=== PATIENT | female | born 1955 | race Caucasian/White ===

== ENCOUNTER 2017-03-10 10:38 | Inpatient (IN) | payer BC ==
[~2017-03-10] VITALS: Ht 166.4 cm; Wt 110.2 kg
[~2017-03-10 10:38] MED LIST: ACET500T68 PO; CYAN500T17 PO; FERR-26 PO; FLUT9.9S NS; HYDR25TA9 PO; HYDR453.3 TP; LISI-334 PO; LORA0.5T PO; MAG1TAB.3 PO; MAGN311T PO; MULT-312 PO; ONDA4TAB7 PO; OXYC10TA57 PO; OXYC5TAB95 PO; PROAIR HFA8.5 GM IH; RANI150T2 PO; SENN1TAB21 PO; SERT50TA PO
--- NOTE | 2017-03-10 11:06 | EKG ---
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
[2017-03-10] MEDS ORDERED: ASPIRIN ENTERIC COATED 325 MG TABLET.DR. PO ONE (11:15)
[2017-03-10] MEDS ORDERED: IPRATRPIUM/ALBUTEROL 0.5/2.5MG 3 ML NEBU. NEB ONE (11:15)
--- NOTE | 2017-03-10 11:24 | PHYS DOC ---
Past Medical History Past Medical History: Anxiety, Asthma, GERD, Hypertension, Other Additional Past Medical Histor: seasonal allergies, C-Diff Past Surgical History: , Knee Replacement Additional Past Surgical Histo: bilateral knee replacment on 2014 Alcohol Use: None Drug Use: None Adult General Chief Complaint Chief Complaint: chest pain, sob HPI HPI Patient is a 61 year old female who presents with rest pain or shortness of breath, dizziness. Patient states over the last few days she said increased shortness of breath, exertional dyspnea Cathy denies cough. She has a history of asthma in the past but hasn't used an inhaler in years. She did have disease and an inhaler for shortness of breath, unsure if this improved her symptoms. She has dizziness that feels like she could pass out, when she has this she has what feels like a pressure-like chest pain that is nonradiating. She also has associated shortness of breath. She denies any history of PE or DVT, she has had recent travel by plane to [place] was on a cruise. No other risk factors for DVT. Denies history of DVT or PE, no cardiac history. PCP is Susan Quintana Review of Systems Review of Systems Constitutional: Denies fever or chills [] Eyes: Denies change in visual acuity, redness, or eye pain [] HENT: Denies nasal congestion or sore throat [] Respiratory: Per history of present illness Cardiovascular: No additional information not addressed in HPI [] GI: Denies abdominal pain, nausea, vomiting, bloody stools or diarrhea [] : Denies dysuria or hematuria [] Musculoskeletal: Denies back pain or joint pain [] Integument: Denies rash or skin lesions [] Neurologic: Denies headache, focal weakness or sensory changes [] Current Medications Current Medications Current Medications Medications (Trade) Dose Ordered Sig/Anastasia Start Time Stop Time Status Last Admin Dose Admin Albuterol/ Ipratropium (Duoneb) 3 ml 1X ONCE 03/10/17 11:15 03/10/17 11:20 DC 03/10/17 11:29 3 ML Aspirin (Ecotrin) 325 mg 1X ONCE 03/10/17 11:15 03/10/17 11:20 DC 03/10/17 11:15 325 MG Allergies Allergies Allergies Coded Allergies Type Severity Reaction Last Updated Verified Penicillins Allergy Intermediate Rash 09/30/14 No Physical Exam Physical Exam Constitutional: Well developed, well nourished, no acute distress, non-toxic appearance, tearful HENT: Normocephalic, atraumatic, bilateral external ears normal, oropharynx moist, no oral exudates, nose normal. [] Eyes: PERRLA, EOMI, conjunctiva normal, no discharge. [] Neck: Normal range of motion, no tenderness, supple, no stridor. [] Cardiovascular:Heart rate regular with regular rhythm, no murmur [] Lungs & Thorax: Bilateral breath sounds, moderate air movement, no crackles/ rhonchi/wheeze Abdomen: Bowel sounds normal, soft, no tenderness, no masses, no pulsatile masses. [] Skin: Warm, dry, no erythema, no rash. [] Back: No tenderness, no CVA tenderness. [] Extremities: No tenderness, no cyanosis, no clubbing, ROM intact, no edema.Negative homen's bilaterally Neurologic: Alert and oriented X 3, normal motor function, normal sensory function, no focal deficits noted. [] Psychologic: Affect normal, judgement normal, mood normal. [] Current Patient Data Vital Signs Vital Signs Date Time Temp Pulse Resp B/P (MAP) Pulse Ox O2 Delivery O2 Flow Rate FiO2 03/10/17 12:09 67 18 130/70 (90) 97 Room Air 03/10/17 10:49 97.6 97.6 Lab Values Laboratory Tests Test 03/10/17 11:20 White Blood Count 6.8 x10^3/uL (4.0-11.0) Red Blood Count 4.80 x10^6/uL (3.50-5.40) Hemoglobin 13.8 g/dL (12.0-15.5) Hematocrit 41.5 % (36.0-47.0) Mean Corpuscular Volume 86 fL (79-100) Mean Corpuscular Hemoglobin 29 pg (25-35) Mean Corpuscular Hemoglobin Concent 33 g/dL (31-37) Red Cell Distribution Width 13.7 % (11.5-14.5) Platelet Count 225 x10^3/uL (140-400) Neutrophils (%) (Auto) 69 % (31-73) Lymphocytes (%) (Auto) 20 % (24-48) L Monocytes (%) (Auto) 7 % (0-9) Eosinophils (%) (Auto) 3 % (0-3) Basophils (%) (Auto) 1 % (0-3) Neutrophils # (Auto) 4.7 x10^3uL (1.8-7.7) Lymphocytes # (Auto) 1.3 x10^3/uL (1.0-4.8) Monocytes # (Auto) 0.5 x10^3/uL (0.0-1.1) Eosinophils # (Auto) 0.2 x10^3/uL (0.0-0.7) Basophils # (Auto) 0.1 x10^3/uL (0.0-0.2) D-Dimer (Jayla) 0.38 ug/mlFEU (0.00-0.50) Sodium Level 142 mmol/L (136-145) Potassium Level 3.8 mmol/L (3.5-5.1) Chloride Level 103 mmol/L (98-107) Carbon Dioxide Level 32 mmol/L (21-32) Anion Gap 7 (6-14) Blood Urea Nitrogen 21 mg/dL (7-20) H Creatinine 0.8 mg/dL (0.6-1.0) Estimated GFR (Cockcroft-Gault) 73.4 BUN/Creatinine Ratio 26 (6-20) H Glucose Level 106 mg/dL (70-99) H Calcium Level 9.9 mg/dL (8.5-10.1) Magnesium Level 1.9 mg/dL (1.8-2.4) Total Bilirubin 1.1 mg/dL (0.2-1.0) H Aspartate Amino Transferase (AST) 38 U/L (15-37) H Alanine Aminotransferase (ALT) 55 U/L (14-59) Alkaline Phosphatase 81 U/L (46-116) Troponin I Quantitative < 0.017 ng/mL (0.000-0.055) Total Protein 7.5 g/dL (6.4-8.2) Albumin 3.8 g/dL (3.4-5.0) Albumin/Globulin Ratio 1.0 (1.0-1.7) Triglycerides Level 483 mg/dL (0-150) H Cholesterol Level 216 mg/dL (0-200) H LDL Cholesterol, Calculated 82 mg/dL (0-100) VLDL Cholesterol, Calculated 97 mg/dL (0-40) H Non-HDL Cholesterol Calculated 179 mg/dL (0-129) H HDL Cholesterol 37 mg/dL (40-60) L Cholesterol/HDL Ratio 5.8 Laboratory Tests 03/10/17 11:20 Laboratory Tests 03/10/17 11:20 EKG EKG 1040: 68 bpm, sinus, normal axis, normal intervals, no ST elevation or depression, nonischemic T waves, interpreted by me[] Radiology/Procedures Radiology/Procedures CXR: Examination: Single frontal view the chest History: History of chest pain, shortness of breath Comparison: None available Findings: The cardiomediastinal grossly appears unremarkable. There is no acute infiltrate or visualized pneumothorax. Impression: No acute cardiopulmonary findings. [] Course & Med Decision Making Course & Med Decision Making Pertinent Labs and Imaging studies reviewed. (See chart for details) Pt given asa and breathing treatment. Pt's sob improved, chest pain had resolved upon arrival. Due to pt's dizziness with the chest pain, will admit for serial enzymes. Pt accepted by Dr. Salcedo, pt given po prednisone 50mg. Dragon Disclaimer Dragon Disclaimer This electronic medical record was generated, in whole or in part, using a voice recognition dictation system. Departure Departure Impression: Primary Impression: Chest pain Disposition: ADMITTED INPATIENT Admitting Physician: Isabella Salcedo Referrals: JENNIFER PAREDES MD (PCP) SANDRA HERMOSILLO MD Mar 10, 2017 11:24
[2017-03-10 11:31] LABS: BASO # 0.1 x10^3/uL (0.0-0.2); BASO % 1 % (0-3); EOS % 3 % (0-3); HEMATOCRIT 41.5 % (36.0-47.0); HEMOGLOBIN 13.8 g/dL (12.0-15.5); LYMPH # 1.3 x10^3/uL (1.0-4.8); LYMPH % 20 % (24-48); MEAN CORPUSCULAR HEMOGLOBIN 29 pg (25-35); MEAN CORPUSCULAR HGB CONC 33 g/dL (31-37); MEAN CORPUSCULAR VOLUME 86 fL (79-100); MONO % 7 % (0-9); NEUT % 69 % (31-73); PLATELET COUNT 225 x10^3/uL (140-400); RED CELL DISTRIBUTION WIDTH 13.7 % (11.5-14.5); WHITE BLOOD COUNT 6.8 x10^3/uL (4.0-11.0)
[2017-03-10 11:42] LABS: CALCIUM 9.9 mg/dL (8.5-10.1); CREATININE 0.8 mg/dL (0.6-1.0); GFR 73.4; POTASSIUM 3.8 mmol/L (3.5-5.1)
[2017-03-10 11:48] LABS: ALBUMIN 3.8 g/dL (3.4-5.0); MAGNESIUM 1.9 mg/dL (1.8-2.4); TOTAL BILIRUBIN 1.1 mg/dL (0.2-1.0); TOTAL PROTEIN 7.5 g/dL (6.4-8.2)
--- NOTE | 2017-03-10 11:54 | RAD ---
Examination: Single frontal view the chest History: History of chest pain, shortness of breath Comparison: None available Findings: The cardiomediastinal grossly appears unremarkable. There is no acute infiltrate or visualized pneumothorax. Impression: No acute cardiopulmonary findings.
[2017-03-10] MEDS ORDERED: predniSONE 10 MG TABLET PO ONE (12:30)
--- NOTE | 2017-03-10 13:53 | PDOC2 ---
SRAVAN GARCES LIBRARY SERVICES ASSISTANT 03/10/17 1353: CARDIAC CONSULT DATE OF CONSULT Date of Consult DATE: 03/10/17 TIME: 13:42 REASON FOR CONSULT Reason for Consult: CP SOA REFERRING PHYSICIAN Referring Physician: Manju SOURCE Source: Chart review, Patient HISTORY OF PRESENT ILLNESS HISTORY OF PRESENT ILLNESS This is a pleasant 61 yo female admitted for complains of chest pain and SOA. Reports that she started having intermittent chest pressure that is nonradidating preceded byt lightheadedness and eventual SOA. This episode last about 60 sec and has been happening intermittently since Monday. This is also associated with anxiety. Also positive for increased belching and indigestion and has been taking tums and just recently started on prilosec but not regularly. Denies any palpiations, nausea, vomiting. No visual or auditory impairment, no LAGUERRE. Denies any prior CAD, VTE, no prior falls or injury. Positive for HTN and HLP. Denies any frequent NSAID use, no bleeding or PUD. No exertional CP nor HUTCHISON. PAST MEDICAL HISTORY Cardiovascular: HTN, Hyperlipidemia Pulmonary: No pertinent hx CENTRAL NERVOUS SYSTEM: Other (No pertinent history) GI: GERD Heme/Onc: No pertinent hx Hepatobiliary: No pertinent hx Psych: Anxiety Musculoskeletal: Osteoarthritis Rheumatologic: No pertinent hx Infectious disease: No pertinent hx ENT: Allergic Rhinitis Renal/: No pertinent hx Endocrine: No pertinent hx Dermatology: No pertinent hx PAST SURGICAL HISTORY Past Surgical History: , Total knee replacement (bilateral), Tonsillectomy, Other (bilateral breast cyst removal) FAMILY HISTORY Family History: Coronary Artery Disease (father) SOCIAL HISTORY Smoke: No ALCOHOL: none Drugs: None Lives: with Family Domestic Violence: Neg CURRENT MEDICATIONS CURRENT MEDICATIONS Current Medications Medications (Trade) Dose Ordered Sig/Anastasia Route PRN Reason Start Time Stop Time Status Last Admin Dose Admin Aspirin (Ecotrin) 325 mg 1X ONCE PO 03/10/17 11:15 03/10/17 11:20 DC 03/10/17 11:15 Albuterol/ Ipratropium (Duoneb) 3 ml 1X ONCE NEB 03/10/17 11:15 03/10/17 11:20 DC 03/10/17 11:29 Prednisone (Prednisone) 50 mg 1X ONCE PO 03/10/17 12:30 03/10/17 12:31 DC 03/10/17 12:30 ALLERGIES ALLERGIES: Coded Allergies: Penicillins (Unverified Allergy, Intermediate, Rash, 09/30/14) ROS Review of System 14 point ROS evaluated with pertinent positives noted per HPI PHYSICAL EXAM General: Alert, Oriented X3, Cooperative, No acute distress HEENT: Atraumatic, Mucous membr. moist/pink Lungs: Clear to auscultation, Normal air movement Heart: Regular rate (SR), Normal S1, Normal S2 Abdomen: Soft, No tenderness, Other (obese) Extremities: No cyanosis, Other (trace LE edema) Skin: No breakdown, No significant lesion Neuro: Normal speech, Sensation intact Psych/Mental Status: Mental status NL, Mood NL MUSCULOSKELETAL: Osteoarthritic changes both hands VITALS VITALS Vital Signs Date Time Temp Pulse Resp B/P (MAP) Pulse Ox O2 Delivery O2 Flow Rate FiO2 03/10/17 12:39 73 19 129/76 (93) 98 Room Air 03/10/17 10:49 97.6 97.6 LABS Lab: Laboratory Tests Test 03/10/17 11:20 White Blood Count 6.8 x10^3/uL (4.0-11.0) Red Blood Count 4.80 x10^6/uL (3.50-5.40) Hemoglobin 13.8 g/dL (12.0-15.5) Hematocrit 41.5 % (36.0-47.0) Mean Corpuscular Volume 86 fL (79-100) Mean Corpuscular Hemoglobin 29 pg (25-35) Mean Corpuscular Hemoglobin Concent 33 g/dL (31-37) Red Cell Distribution Width 13.7 % (11.5-14.5) Platelet Count 225 x10^3/uL (140-400) Neutrophils (%) (Auto) 69 % (31-73) Lymphocytes (%) (Auto) 20 % (24-48) Monocytes (%) (Auto) 7 % (0-9) Eosinophils (%) (Auto) 3 % (0-3) Basophils (%) (Auto) 1 % (0-3) Neutrophils # (Auto) 4.7 x10^3uL (1.8-7.7) Lymphocytes # (Auto) 1.3 x10^3/uL (1.0-4.8) Monocytes # (Auto) 0.5 x10^3/uL (0.0-1.1) Eosinophils # (Auto) 0.2 x10^3/uL (0.0-0.7) Basophils # (Auto) 0.1 x10^3/uL (0.0-0.2) D-Dimer (Jayla) 0.38 ug/mlFEU (0.00-0.50) Sodium Level 142 mmol/L (136-145) Potassium Level 3.8 mmol/L (3.5-5.1) Chloride Level 103 mmol/L (98-107) Carbon Dioxide Level 32 mmol/L (21-32) Anion Gap 7 (6-14) Blood Urea Nitrogen 21 mg/dL (7-20) Creatinine 0.8 mg/dL (0.6-1.0) Estimated GFR (Cockcroft-Gault) 73.4 BUN/Creatinine Ratio 26 (6-20) Glucose Level 106 mg/dL (70-99) Calcium Level 9.9 mg/dL (8.5-10.1) Magnesium Level 1.9 mg/dL (1.8-2.4) Total Bilirubin 1.1 mg/dL (0.2-1.0) Aspartate Amino Transf (AST/SGOT) 38 U/L (15-37) Alanine Aminotransferase (ALT/SGPT) 55 U/L (14-59) Alkaline Phosphatase 81 U/L (46-116) Troponin I Quantitative < 0.017 ng/mL (0.000-0.055) Total Protein 7.5 g/dL (6.4-8.2) Albumin 3.8 g/dL (3.4-5.0) Albumin/Globulin Ratio 1.0 (1.0-1.7) ASSESSMENT/PLAN ASSESSMENT/PLAN 1. Atypical CP: likely GI. 2. Presyncope: likely vasovagal induced by anxiety 3. HTN: controlled 4. HLP: unknown med 5. Anxiety: takes ativan per home med 6. GERD 7. Morbid obesity Recommendations 1. TTE and will completely rule out ischemia with 2 day MPI rest today stress tomorrow. 2. Start PPI. 3. Lipid panel, trend troponin 4. Lifestyle modification, wt loss. Problems: STEPHANIE BECKHAM MD 03/10/17 1853: CARDIAC CONSULT ALLERGIES ALLERGIES: Coded Allergies: Penicillins (Unverified Allergy, Intermediate, Rash, 09/30/14) ASSESSMENT/PLAN ASSESSMENT/PLAN Patient seen and examined. Agree with above nurse practitioner note. 61-year- old woman with multiple comorbid conditions presenting with atypical chest pain. Plan for MPI prior to discharge. Thank you for this consultation. Problems: SRAVAN GARCES APRN Mar 10, 2017 13:53 STEPHANIE BECKHAM MD Mar 10, 2017 18:53
[2017-03-10 14:05] LABS: CHOLESTEROL/HDL RATIO 5.8
[2017-03-10 14:15] VITALS: BP 131/78
[2017-03-10] MEDS ORDERED: ATOR10TA60 PO (14:25)
[2017-03-10 15:00] VITALS: BP 131/78
--- NOTE | 2017-03-10 16:03 | CARD ---
APPROVED REPORT EXAM: Two-dimensional and M-mode echocardiogram with Doppler and color Doppler. Other Information Quality : Good INDICATION Chest Pain 2D DIMENSIONS Left Atrium(2D)4.0 (1.6-4.0cm)IVSd1.3 (0.7-1.1cm) Aortic Root(2D)3.2 (2.0-3.7cm)LVDd5.4 (3.9-5.9cm) LVOT Diameter2.0 (1.8-2.4cm)PWd1.2 (0.7-1.1cm) LVDs3.7 (2.5-4.0cm)FS (%) 32.1 % SV85.5 mlLVEF(%)59.7 (>50%) Aortic Valve AoV Peak Nick.226.7cm/sAoV VTI42.2cm AO Peak GR.20.6mmHgLVOT Peak Nick.132.7cm/s AO Mean GR.11mmHg Mitral Valve MV E Thbosmbn432.9cm/sMV DECEL [id number] MV A Rskobmst636.8cm/sE/A Ratio0.7 Tricuspid Valve TR P. Jmswvahe518fi/sRAP [id number] TR Peak Gr.20mmHg LEFT VENTRICLE The left ventricle is normal size. There is mild concentric left ventricular hypertrophy. Left ventri bhupinder systolic function is normal. The Ejection Fraction is 55-60%. There is normal LV segmental wall m otion. The left ventricular diastolic function and filling is normal for age. RIGHT VENTRICLE The right ventricle is normal size. The right ventricular systolic function is normal. ATRIA The left atrium is mildly dilated. The right atrium size is normal. The interatrial septum is intact with no evidence for an atrial septal defect or patent foramen ovale as noted on 2-D or Doppler imagi ng. AORTIC VALVE The aortic valve is calcified but opens well. Doppler and Color Flow revealed no significant aortic r egurgitation. There is no significant aortic valvular stenosis. MITRAL VALVE The mitral valve is mildly calcified but opens well. There is no evidence of mitral valve prolapse. T here is no mitral valve stenosis. Doppler and Color Flow revealed no mitral valve regurgitation noted . TRICUSPID VALVE The tricuspid valve is normal in structure and function. Doppler and Color Flow revealed mild tricusp id regurgitation. There is no pulmonary hypertension. The PA pressure was estimated at 23 mmHg. There is no tricuspid valve prolapse or vegetation. There is no tricuspid valve stenosis. PULMONIC VALVE The pulmonary valve is normal in structure and function. Doppler and Color Flow revealed no pulmonic valvular regurgitation. There is no pulmonic valvular stenosis. GREAT VESSELS The aortic root is normal in size. The ascending aorta is normal in size. The IVC is normal in size a nd collapses >50% with inspiration. PERICARDIAL EFFUSION There is no pleural effusion. There is no evidence of significant pericardial effusion. Critical Notification Critical Value: No <Conclusion> Left ventricle systolic function is normal. The Ejection Fraction is 55-60%. There is normal LV segmental wall motion. Doppler and Color Flow revealed mild tricuspid regurgitation. The PA pressure was estimated at 23 mmHg. There is no evidence of significant pericardial effusion.
[2017-03-10] MEDS: IPRATRPIUM/ALBUTEROL 0.5/2.5MG 3 ML NEBU. NEB SCH ×2 (16:25→20:56)
--- NOTE | 2017-03-10 16:40 | PDOC1 ---
History and Physical Date of Admission Date of Admission DATE: 03/10/17 TIME: 16:33 Identification/Chief Complaint Chief Complaint chest pain and dyspnea Problems: Source Source: Chart review, Patient History of Present Illness History of Present Illness new LE edema the past few days, and new orthopnea. She had new dyspnea on exertion on monday, but then had felt well Today, she had marked dyspnea on exertion when walking into work from her car, and took 15 min for her to sit and catch her breath, no chest pain at start, but then pressure type freddie in mid chest as she was dyspneic she has no pain currently, but some ankle swelling, and has not been sleeping well as she gets short of breath when she lays flat Past Medical History Cardiovascular: HTN, Hyperlipidemia Pulmonary: No pertinent hx CENTRAL NERVOUS SYSTEM: Other (No pertinent history) GI: GERD Heme/Onc: No pertinent hx Hepatobiliary: No pertinent hx Psych: Anxiety Musculoskeletal: Osteoarthritis Rheumatologic: No pertinent hx Infectious disease: No pertinent hx ENT: Allergic Rhinitis Renal/: No pertinent hx Endocrine: No pertinent hx Dermatology: No pertinent hx Past Surgical History Past Surgical History: , Total knee replacement (bilateral), Tonsillectomy, Other (bilateral breast cyst removal) Family History Family History: Coronary Artery Disease (father) Family History: Parent (age 65 had CAD) Social History Smoke: No ALCOHOL: none Drugs: None Current Problem List Problem List Problems Medical Problems: (1) Chest pain Status: Acute Problems: Current Medications Current Medications Current Medications Aspirin (Ecotrin) 325 mg 1X ONCE PO Last administered on 03/10/17 11:15; Start 03/10/17 at 11:15; Stop 03/10/17 at 11:20; Status DC Albuterol/ Ipratropium (Duoneb) 3 ml 1X ONCE NEB Last administered on 11:29; Start 03/10/17 at 11:15; Stop 03/10/17 at 11:20; Status DC Prednisone (Prednisone) 50 mg 1X ONCE PO Last administered on 03/10/17 12:30 ; Start 03/10/17 at 12:30; Stop 03/10/17 at 12:31; Status DC Albuterol/ Ipratropium (Duoneb) 3 ml RTQID NEB Last administered on 03/10/17 16:25; Start 03/10/17 at 16:00; Stop 03/11/17 at 15:59 Fenofibrate (Lofibra) 54 mg DAILY PO ; Start 03/11/17 at 09:00 Active Scripts Active Reported Atorvastatin Calcium 10 Mg Tablet 10 Mg PO HS Lorazepam 0.5 Mg Tablet 0.5 Mg PO BID Zoloft (Sertraline Hcl) 50 Mg Tablet 1 Tab PO DAILY Lisinopril 20 Mg Tablet 1 Tab PO DAILY Hydrochlorothiazide Tablet (Hydrochlorothiazide) 25 Mg Tablet 0.5 Tab PO DAILY Flonase Allergy Relief (Fluticasone Propionate) 9.9 Ml [place].susp 9.9 Ml NS Ferrous Sulfate 325 Mg Tablet 1 Tab PO DAILY Senna Plus Tablet (Sennosides/Docusate Sodium) 1 Each Tablet 1 Each PO PRN PRN B-12 (Cyanocobalamin (Vitamin B-12)) 500 Mcg Tablet 500 Mcg PO Proair Hfa Inhaler (Albuterol Sulfate) 8.5 Gm Hfa.aer.ad 2 Puff IH PRN Q4-6HRS Acetaminophen 500 Mg Tablet 325 Mg PO PRN PRN Allergies Allergies: Coded Allergies: Penicillins (Unverified Allergy, Intermediate, Rash, 09/30/14) ROS General: No: Chills, Night Sweats, Fatigue, Malaise, Appetite, Other PSYCHOLOGICAL ROS: No: Anxiety, Behavioral Disorder, Concentration difficultie , Decreased libido, Depression, Disorientation, Hallucinations, Hostility, Irritablity, Memory difficulties, Mood Swings, Obsessive thoughts, Physical abuse, Sexual abuse, Sleep disturbances, Suicidal ideation, Other Eyes: No Blurry vision, No Decreased vision, No Double vision, No Dry eyes, No Excessive tearing, No Eye Pain, No Itchy Eyes, No Loss of vision, No Photophobia , No Scotomata, No Uses contacts, No Uses glasses, No Other ENDOCRINE: No: Breast Changes, Galactorrhea, Hair Pattern Changes, Hot Flashes , Malaise/lethargy, Mood Swings, Palpitations, Polydipsia/polyuria, Skin Changes , Temperature Intolerance, Unexpected Weight Changes, Other Respiratory: YES: Orthopnea, SOB with excertion, No: Cough, Hemoptysis, Pleuritic Pain, Shortness of breath, Sputum Changes, Stridor, Tachypnea, Wheezing, Other Cardiovascular: yes Chest Pain, yes Orthopnea, yes Edema, No Palpitations, No Paroxysmal Noc. Dyspnea, No Lt Headedness, No Other Gastrointestinal: No Nausea, No Vomiting, No Abdominal Pain, No Diarrhea, No Constipation, No Melena, No Hematochezia, No Other Genitourinary: No Dysuria, No Frequency, No Incontinence, No Hematuria, No Retention, No Discharge, No Urgency, No Pain, No Flank Pain, No Other, No , No , No , No , No , No , No Musculoskeletal: No Gait Disturbance, No Joint Pain, No Joint Stiffness, No Joint Swelling, No Muscle Pain, No Muscular Weakness, No Pain In:, No Swelling In:, No Other Neurological: No Behavorial Changes, No Bowel/Bladder ControlChng, No Confusion , No Dizziness, No Gait Disturbance, No Headaches, No Impaired Coord/balance, No Memory Loss, No Numbness/Tingling, No Seizures, No Speech Problems, No Tremors, No Visual Changes, No Weakness, No Other Skin: No Dry Skin, No Eczema, No Hair Changes, No Lumps, No Mole Changes, No Mottling, No Nail Changes, No Pruritus, No Rash, No Skin Lesion Changes, No Other, No Acne Physical Exam General: Alert, Cooperative, No acute distress HEENT: EOMI, Mucous membr. moist/pink Lungs: Clear to auscultation Heart: S1S2, no murmurs Abdomen: Normal bowel sounds, Soft Extremities: No cyanosis, Other (1+ pedal, 2+ ankle edema, no pretibial) Skin: No rashes, No significant lesion Neuro: Normal speech, Strength at 5/5 X4 ext, Normal tone Psych/Mental Status: Mental status NL, Mood NL Vitals Vitals Vital Signs Date Time Temp Pulse Resp B/P (MAP) Pulse Ox O2 Delivery O2 Flow Rate FiO2 03/10/17 16:27 95 Room Air 03/10/17 14:15 98.2 73 18 131/78 (95) 98.2 Labs Labs Laboratory Tests Test 03/10/17 11:20 White Blood Count 6.8 x10^3/uL (4.0-11.0) Red Blood Count 4.80 x10^6/uL (3.50-5.40) Hemoglobin 13.8 g/dL (12.0-15.5) Hematocrit 41.5 % (36.0-47.0) Mean Corpuscular Volume 86 fL (79-100) Mean Corpuscular Hemoglobin 29 pg (25-35) Mean Corpuscular Hemoglobin Concent 33 g/dL (31-37) Red Cell Distribution Width 13.7 % (11.5-14.5) Platelet Count 225 x10^3/uL (140-400) Neutrophils (%) (Auto) 69 % (31-73) Lymphocytes (%) (Auto) 20 % (24-48) Monocytes (%) (Auto) 7 % (0-9) Eosinophils (%) (Auto) 3 % (0-3) Basophils (%) (Auto) 1 % (0-3) Neutrophils # (Auto) 4.7 x10^3uL (1.8-7.7) Lymphocytes # (Auto) 1.3 x10^3/uL (1.0-4.8) Monocytes # (Auto) 0.5 x10^3/uL (0.0-1.1) Eosinophils # (Auto) 0.2 x10^3/uL (0.0-0.7) Basophils # (Auto) 0.1 x10^3/uL (0.0-0.2) D-Dimer (Jayla) 0.38 ug/mlFEU (0.00-0.50) Sodium Level 142 mmol/L (136-145) Potassium Level 3.8 mmol/L (3.5-5.1) Chloride Level 103 mmol/L (98-107) Carbon Dioxide Level 32 mmol/L (21-32) Anion Gap 7 (6-14) Blood Urea Nitrogen 21 mg/dL (7-20) Creatinine 0.8 mg/dL (0.6-1.0) Estimated GFR (Cockcroft-Gault) 73.4 BUN/Creatinine Ratio 26 (6-20) Glucose Level 106 mg/dL (70-99) Calcium Level 9.9 mg/dL (8.5-10.1) Magnesium Level 1.9 mg/dL (1.8-2.4) Total Bilirubin 1.1 mg/dL (0.2-1.0) Aspartate Amino Transf (AST/SGOT) 38 U/L (15-37) Alanine Aminotransferase (ALT/SGPT) 55 U/L (14-59) Alkaline Phosphatase 81 U/L (46-116) Troponin I Quantitative < 0.017 ng/mL (0.000-0.055) Total Protein 7.5 g/dL (6.4-8.2) Albumin 3.8 g/dL (3.4-5.0) Albumin/Globulin Ratio 1.0 (1.0-1.7) Triglycerides Level 483 mg/dL (0-150) Cholesterol Level 216 mg/dL (0-200) LDL Cholesterol, Calculated 82 mg/dL (0-100) VLDL Cholesterol, Calculated 97 mg/dL (0-40) Non-HDL Cholesterol Calculated 179 mg/dL (0-129) HDL Cholesterol 37 mg/dL (40-60) Cholesterol/HDL Ratio 5.8 Laboratory Tests Test 03/10/17 11:20 White Blood Count 6.8 x10^3/uL (4.0-11.0) Red Blood Count 4.80 x10^6/uL (3.50-5.40) Hemoglobin 13.8 g/dL (12.0-15.5) Hematocrit 41.5 % (36.0-47.0) Mean Corpuscular Volume 86 fL (79-100) Mean Corpuscular Hemoglobin 29 pg (25-35) Mean Corpuscular Hemoglobin Concent 33 g/dL (31-37) Red Cell Distribution Width 13.7 % (11.5-14.5) Platelet Count 225 x10^3/uL (140-400) Neutrophils (%) (Auto) 69 % (31-73) Lymphocytes (%) (Auto) 20 % (24-48) Monocytes (%) (Auto) 7 % (0-9) Eosinophils (%) (Auto) 3 % (0-3) Basophils (%) (Auto) 1 % (0-3) Neutrophils # (Auto) 4.7 x10^3uL (1.8-7.7) Lymphocytes # (Auto) 1.3 x10^3/uL (1.0-4.8) Monocytes # (Auto) 0.5 x10^3/uL (0.0-1.1) Eosinophils # (Auto) 0.2 x10^3/uL (0.0-0.7) Basophils # (Auto) 0.1 x10^3/uL (0.0-0.2) D-Dimer (Jayla) 0.38 ug/mlFEU (0.00-0.50) Sodium Level 142 mmol/L (136-145) Potassium Level 3.8 mmol/L (3.5-5.1) Chloride Level 103 mmol/L (98-107) Carbon Dioxide Level 32 mmol/L (21-32) Anion Gap 7 (6-14) Blood Urea Nitrogen 21 mg/dL (7-20) Creatinine 0.8 mg/dL (0.6-1.0) Estimated GFR (Cockcroft-Gault) 73.4 BUN/Creatinine Ratio 26 (6-20) Glucose Level 106 mg/dL (70-99) Calcium Level 9.9 mg/dL (8.5-10.1) Magnesium Level 1.9 mg/dL (1.8-2.4) Total Bilirubin 1.1 mg/dL (0.2-1.0) Aspartate Amino Transf (AST/SGOT) 38 U/L (15-37) Alanine Aminotransferase (ALT/SGPT) 55 U/L (14-59) Alkaline Phosphatase 81 U/L (46-116) Troponin I Quantitative < 0.017 ng/mL (0.000-0.055) Total Protein 7.5 g/dL (6.4-8.2) Albumin 3.8 g/dL (3.4-5.0) Albumin/Globulin Ratio 1.0 (1.0-1.7) Triglycerides Level 483 mg/dL (0-150) Cholesterol Level 216 mg/dL (0-200) LDL Cholesterol, Calculated 82 mg/dL (0-100) VLDL Cholesterol, Calculated 97 mg/dL (0-40) Non-HDL Cholesterol Calculated 179 mg/dL (0-129) HDL Cholesterol 37 mg/dL (40-60) Cholesterol/HDL Ratio 5.8 VTE Prophylaxis Ordered VTE Prophylaxis Devices: No VTE Pharmacological Prophylaxi: Yes Assessment/Plan Assessment/Plan angina new dyspnea on exertion, new LE edema and orthopnea chest pain with pressure admit to eval for ACS risk, new CHF symptoms, but possible valvular, CV consult, echo done and results pending, obesity, BMI 40 htn anxiety hyperlipids asthma LEEANN SHAIKH MD Mar 10, 2017 16:40
[2017-03-10] MEDS ORDERED: ACETAMINOPHEN 325 MG TABLET. PO PRN (16:45)
[2017-03-10] MEDS ORDERED: SENNOSIDES/DOCUSATE 8.6/50MG TABLET. PO PRN (16:45)
[2017-03-10 19:00] VITALS: BP 143/66
[2017-03-10] MEDS: LORazepam 0.5 MG TABLET PO SCH (20:41)
[2017-03-10] MEDS: PANTOPRAZOLE 40 MG TABLET.DR. PO SCH (20:41)
[2017-03-10] MEDS ORDERED: ATORVASTATIN CALCIUM 10 MG TABLET. PO SCH (21:00)
[2017-03-10] MEDS ORDERED: ENOXAPARIN 40 MG/0.4 ML SYRINGE. SQ SCH (21:00)
[2017-03-10] MEDS ORDERED: LISINOPRIL 20 MG TABLET PO ONE (21:00)
[2017-03-10 23:00] VITALS: BP 133/75
[2017-03-11 03:00] VITALS: BP 143/70
[2017-03-11 07:00] VITALS: BP 123/65
[2017-03-11] MEDS: IPRATRPIUM/ALBUTEROL 0.5/2.5MG 3 ML NEBU. NEB SCH ×2 (07:41→11:46)
[2017-03-11] MEDS ORDERED: FERROUS SULFATE 325 MG TABLET. PO SCH (09:00)
[2017-03-11] MEDS ORDERED: FENOFIBRATE 54 MG TABLET. PO SCH (09:00)
[2017-03-11] MEDS ORDERED: hydroCHLOROthiazide 12.5 MG CAPSULE PO SCH (09:00)
[2017-03-11] MEDS ORDERED: LISINOPRIL 20 MG TABLET PO SCH (09:00)
[2017-03-11] MEDS: SERTRALINE 50 MG TABLET. PO SCH ×2 (09:00→12:02)
[2017-03-11] MEDS ORDERED: REGADENOSON 0.4 MG/5 ML DISP.SYRIN. IV ONE (10:00)
[2017-03-11 11:00] VITALS: BP 127/67
[2017-03-11] MEDS: LORazepam 0.5 MG TABLET PO SCH (12:02)
[2017-03-11] MEDS: PANTOPRAZOLE 40 MG TABLET.DR. PO SCH (12:03)
--- NOTE | 2017-03-11 13:33 | PDOC ---
PROGRESS NOTES Chief Complaint Chief Complaint Chest pain Anxiety Asthma GERD Hypertension Seasonal allergies History of Present Illness History of Present Illness Pt was in MPI eating her high fat meal. She was grossly alert and oriented, and no longer had chest pain. Vitals Vitals Vital Signs Date Time Temp Pulse Resp B/P (MAP) Pulse Ox O2 Delivery O2 Flow Rate FiO2 03/11/17 12:03 99 127/67 03/11/17 11:00 98.5 18 97 98.5 03/11/17 08:00 Room Air Physical Exam Physical Exam Eyes: sclera anicteric, no conjunctival injection HENT: MMM, no throat erythema General: Alert, Cooperative, No acute distress Heart: Regular rate (SR), Normal S1, Normal S2, No murmurs Lungs: Clear, Other (No rales, rhonchi, wheezes) Extremities: No clubbing, No cyanosis Labs LABS Laboratory Tests Test 03/10/17 18:15 03/11/17 00:30 Troponin I Quantitative < 0.017 ng/mL (0.000-0.055) < 0.017 ng/mL (0.000-0.055) Review of Systems Review of Systems Denies fever, chills, or chest pain. Assessment and Plan Assessmemt and Plan Problems Medical Problems: (1) Chest pain Status: Acute ASSESSMENT: Chest pain Anxiety Asthma GERD Hypertension Seasonal allergies PLAN: MPI in progress - awaiting results PT/OT Continue current medications Recheck labs, serial enzymes, serial EKGs Follow up with PCP after d/c Problems: Comment Review of Relevant I have reviewed the following items basim (where applicable) has been applied. Labs Laboratory Tests Test 03/10/17 11:20 03/10/17 18:15 03/11/17 00:30 White Blood Count 6.8 x10^3/uL (4.0-11.0) Red Blood Count 4.80 x10^6/uL (3.50-5.40) Hemoglobin 13.8 g/dL (12.0-15.5) Hematocrit 41.5 % (36.0-47.0) Mean Corpuscular Volume 86 fL (79-100) Mean Corpuscular Hemoglobin 29 pg (25-35) Mean Corpuscular Hemoglobin Concent 33 g/dL (31-37) Red Cell Distribution Width 13.7 % (11.5-14.5) Platelet Count 225 x10^3/uL (140-400) Neutrophils (%) (Auto) 69 % (31-73) Lymphocytes (%) (Auto) 20 % (24-48) Monocytes (%) (Auto) 7 % (0-9) Eosinophils (%) (Auto) 3 % (0-3) Basophils (%) (Auto) 1 % (0-3) Neutrophils # (Auto) 4.7 x10^3uL (1.8-7.7) Lymphocytes # (Auto) 1.3 x10^3/uL (1.0-4.8) Monocytes # (Auto) 0.5 x10^3/uL (0.0-1.1) Eosinophils # (Auto) 0.2 x10^3/uL (0.0-0.7) Basophils # (Auto) 0.1 x10^3/uL (0.0-0.2) D-Dimer (Jayla) 0.38 ug/mlFEU (0.00-0.50) Sodium Level 142 mmol/L (136-145) Potassium Level 3.8 mmol/L (3.5-5.1) Chloride Level 103 mmol/L (98-107) Carbon Dioxide Level 32 mmol/L (21-32) Anion Gap 7 (6-14) Blood Urea Nitrogen 21 mg/dL (7-20) Creatinine 0.8 mg/dL (0.6-1.0) Estimated GFR (Cockcroft-Gault) 73.4 BUN/Creatinine Ratio 26 (6-20) Glucose Level 106 mg/dL (70-99) Calcium Level 9.9 mg/dL (8.5-10.1) Magnesium Level 1.9 mg/dL (1.8-2.4) Total Bilirubin 1.1 mg/dL (0.2-1.0) Aspartate Amino Transf (AST/SGOT) 38 U/L (15-37) Alanine Aminotransferase (ALT/SGPT) 55 U/L (14-59) Alkaline Phosphatase 81 U/L (46-116) Troponin I Quantitative < 0.017 ng/mL (0.000-0.055) < 0.017 ng/mL (0.000-0.055) < 0.017 ng/mL (0.000-0.055) Total Protein 7.5 g/dL (6.4-8.2) Albumin 3.8 g/dL (3.4-5.0) Albumin/Globulin Ratio 1.0 (1.0-1.7) Triglycerides Level 483 mg/dL (0-150) Cholesterol Level 216 mg/dL (0-200) LDL Cholesterol, Calculated 82 mg/dL (0-100) VLDL Cholesterol, Calculated 97 mg/dL (0-40) Non-HDL Cholesterol Calculated 179 mg/dL (0-129) HDL Cholesterol 37 mg/dL (40-60) Cholesterol/HDL Ratio 5.8 Laboratory Tests Test 03/10/17 18:15 03/11/17 00:30 Troponin I Quantitative < 0.017 ng/mL (0.000-0.055) < 0.017 ng/mL (0.000-0.055) Medications Current Medications Aspirin (Ecotrin) 325 mg 1X ONCE PO Last administered on 03/10/17 11:15; Start 03/10/17 at 11:15; Stop 03/10/17 at 11:20; Status DC Albuterol/ Ipratropium (Duoneb) 3 ml 1X ONCE NEB Last administered on 11:29; Start 03/10/17 at 11:15; Stop 03/10/17 at 11:20; Status DC Prednisone (Prednisone) 50 mg 1X ONCE PO Last administered on 03/10/17 12:30 ; Start 03/10/17 at 12:30; Stop 03/10/17 at 12:31; Status DC Albuterol/ Ipratropium (Duoneb) 3 ml RTQID NEB Last administered on 03/11/17 07:41; Start 03/10/17 at 16:00; Stop 03/11/17 at 15:59 Fenofibrate (Lofibra) 54 mg DAILY PO Last administered on 03/11/17 12:03; Start 03/11/17 at 09:00 Acetaminophen (Tylenol) 325 mg PRN Q6HRS PRN PO pain; Start 03/10/17 at 16:45 Atorvastatin Calcium (Lipitor) 10 mg HS PO Last administered on 03/10/17 20:41 ; Start 03/10/17 at 21:00 Ferrous Sulfate (Feosol) 325 mg DAILY PO Last administered on 03/11/17 12:02; Start 03/11/17 at 09:00 Hydrochlorothiazide (Microzide) 12.5 mg DAILY PO Last administered on 12:02; Start 03/11/17 at 09:00 Lisinopril (Prinivil) 20 mg DAILY PO Last administered on 03/11/17 12:03; Start 03/11/17 at 09:00 Lorazepam (Ativan) 0.5 mg BID PO Last administered on 03/11/17 12:02; Start 03/10/17 at 21:00 Senna/Docusate Sodium (Senna Plus) 1 tab PRN DAILY PRN PO CONSTIPATION; Start 03/10/17 at 16:45 Sertraline HCl (Zoloft) 50 mg DAILY PO ; Start 03/11/17 at 09:00 Enoxaparin Sodium (Lovenox Per Pharmacy Prophylaxis Dosing) 1 each PRN DAILY PRN MC SEE COMMENTS; Start 03/10/17 at 16:45; Stop 03/11/17 at 09:31; Status DC Enoxaparin Sodium (Lovenox 40mg Syringe) 40 mg Q24H SQ Last administered on 20:43; Start 03/10/17 at 21:00 Pantoprazole Sodium (Protonix) 40 mg DAILYAC PO Last administered on 03/11/17 12:03; Start 03/10/17 at 19:00 Lisinopril (Prinivil) 20 mg 1X ONCE PO Last administered on 03/10/17 20:42; Start 03/10/17 at 21:00; Stop 03/10/17 at 21:01; Status DC Regadenoson (Lexiscan) 0.4 mg 1X ONCE IV Last administered on 03/11/17 10:00 ; Start 03/11/17 at 10:00; Stop 03/11/17 at 10:01; Status DC Active Scripts Active Reported Atorvastatin Calcium 10 Mg Tablet 10 Mg PO HS Lorazepam 0.5 Mg Tablet 0.5 Mg PO BID Zoloft (Sertraline Hcl) 50 Mg Tablet 1 Tab PO DAILY Lisinopril 20 Mg Tablet 1 Tab PO DAILY Hydrochlorothiazide Tablet (Hydrochlorothiazide) 25 Mg Tablet 0.5 Tab PO DAILY Flonase Allergy Relief (Fluticasone Propionate) 9.9 Ml [place].susp 9.9 Ml NS Ferrous Sulfate 325 Mg Tablet 1 Tab PO DAILY Senna Plus Tablet (Sennosides/Docusate Sodium) 1 Each Tablet 1 Each PO PRN PRN B-12 (Cyanocobalamin (Vitamin B-12)) 500 Mcg Tablet 500 Mcg PO Proair Hfa Inhaler (Albuterol Sulfate) 8.5 Gm Hfa.aer.ad 2 Puff IH PRN Q4-6HRS Acetaminophen 500 Mg Tablet 325 Mg PO PRN PRN Vitals/I & O Vital Sign - Last 24 Hours 03/10/17 03/10/17 03/10/17 03/10/17 14:15 14:30 15:00 16:27 Temp 98.2 98.2 98.2 98.2 Pulse 73 73 Resp 18 18 B/P (MAP) 131/78 (95) 131/78 (95) Pulse Ox 94 94 95 O2 Delivery Room Air Room Air Room Air Room Air 03/10/17 03/10/17 03/10/17 03/10/17 19:00 19:32 20:42 20:58 Temp 98.2 98.2 Pulse 96 96 Resp 18 B/P (MAP) 143/66 (91) 143/66 Pulse Ox 96 96 O2 Delivery Room Air Room Air Room Air 03/10/17 03/11/17 03/11/17 03/11/17 23:00 03:00 07:00 07:41 Temp 97.8 97.9 98.5 97.8 97.9 98.5 Pulse 94 93 80 Resp 18 20 16 B/P (MAP) 133/75 (94) 143/70 (94) 123/65 (84) Pulse Ox 96 95 92 95 O2 Delivery Room Air Room Air Room Air Room Air 03/11/17 03/11/17 03/11/17 08:00 11:00 12:03 Temp 98.5 98.5 Pulse 99 99 Resp 18 B/P (MAP) 127/67 (87) 127/67 Pulse Ox 97 O2 Delivery Room Air Intake and Output 03/10/17 03/10/17 03/11/17 15:00 23:00 07:00 Intake Total 0 ml 700 ml Balance 0 ml 700 ml PAMELA GROVER III DO Mar 11, 2017 13:33
[2017-03-11 15:09] VITALS: BP 130/79
--- NOTE | 2017-03-11 16:27 | RAD ---
APPROVED REPORT Test Type: Pharmacological Stress Nurse/Tech: Virginia Pineda R.N. Test Indications: c/p Cardiac History: htn Medications: See Electronic Medical Record Medical History: See Electronic Medical Record Resting ECG: SR Resting Heart Rate: 78 bpm Resting Blood Pressure: 126/68mmHg Pretest Chest Pain: No chest pain Nurse/Tech Notes S1S2, lungs CTA Pharm. Details Pharmacologic stress testing was performed using 0.4mg per 5ml of regadenoson given intravenously ove r 7-10 seconds. Stress Symptoms chest pressure center of chest about 2 minutes post lexiscan dose. SOB started right away post lexisc an dose. both fully resolved before end of recovery period. pt did have several pvc's around the time her chest pressure started. no further pvc's noted after that POST EXERCISE Reason for Termination: Infusion complete Max HR: 103 bpm Max Blood Pressure: 132/66mmHg Blood Pressure response to exercise: Normal blood pressure response during stress. Heart Rate response to exercise: wnl Chest Pain: Yes. see above note Arrhythmia: Yes. see above note ST Change: No. INTERPRETATION Stress EKG Conclusion: Baseline EKG showed sinus rhythm. No ischemic changes at peak stress. No arr hythmias. Imaging Protocol IMAGE PROTOCOL: Rest Tc-99m/stress Tc-99m 2 days Rest: Stress: Viability: Radiopharm.Tc99m [id number] Sestamibi Dose32.1mCi 40mCi Duration 15min. 15min. Img Date 03/10/2017 03/11/2017 Inj-Img [id number]. 60min. Rest Admin Site:IV - Right AntecubitalAdministrator:Darcy Farias, RT (R)(N) Stress Admin Site: IV - Right AntecubitalAdministrator: Jayro Thomas, RT (R)(N) STRESS DATA End Diast. Vol.134.0mlAv. Heart Rate96.0bpm End Syst. Vol.36.0mlCO Index BSA0.0L/min Myocardial Yjbl901.0gEject. Hrqcldag46.0% Stress Rates Pk. Fill Rate3.18EDV/secLVtime Pk. Fill 161.16msec Pk. Empty Rate3.81ESV/secLVtime Pk. Odtjp144.85msec / Pk. Fill1.56EDV/sec Stress Scores Regional WT0.00Summed WT0.00 Regional WM0.00Summed WM0.00 Study quality was good. Left Ventricular size was Normal at Rest and Stress. Lung uptake was Normal. Left Ventricular ejection fraction is 73%. The rest and stress images show normal perfusion, normal contraction and thickening. LV Perf. Quant 17 Seg. SSS4.00 17 Seg. SRS0.00 17 Seg. SDS4.00 Stress Defect Extent (% LAD)0.00Rest Defect Extent (% LAD)0.00Rev. Defect Extent (% LAD)0.00 Stress Defect Extent (% LCX) 27.50Rest Defect Extent (% LCX)5.00Rev. Defect Extent (% LCX)0.00 Stress Defect Extent (% RCA)0.00Rest Defect Extent (% RCA)0.00Rev. Defect Extent (% RCA)0.00 Stress Defect Extent (% BAO)4.80Rest Defect Extent (% BAO)0.90Rev. Defect Extent (% BAO)0.00 Conclusion 1. Regadenoson cardioisotope stress test did not show any evidence of ischemia or infarct. 2. Normal left ventricular systolic function with ejection fraction calculated at 73%. 3. Low risk for cardiac events.
--- NOTE | 2017-03-11 16:28 | PDOC ---
PROGRESS NOTES Subjective Subjective Chest pain improved since admission Objective Objective Vital Signs Date Time Temp Pulse Resp B/P (MAP) Pulse Ox O2 Delivery O2 Flow Rate FiO2 03/11/17 15:09 98.4 76 18 130/79 (96) 95 98.4 03/11/17 08:00 Room Air Intake and Output 03/11/17 07:00 Intake Total 700 ml Balance 700 ml Intake Oral 700 ml # Voids 3 Physical Exam Heart: Regular rate (SR), Normal S1, Normal S2, No murmurs Extremities: No clubbing, No cyanosis General: Alert, Cooperative, No acute distress HEENT: EOMI, Mucous membr. moist/pink Lungs: Clear to auscultation MUSCULOSKELETAL: Osteoarthritic changes both hands Neuro: Normal speech, Strength at 5/5 X4 ext, Normal tone Psych/Mental Status: Mental status NL, Mood NL Assessment Assessment 1. Atypical CP: likely GI. Myocardial infarction ruled out. 2-D echo showed normal LV systolic function and Lexiscan nuclear stress test did not show any significant ischemia. 2. Presyncope: likely vasovagal. Telemetry did not show any significant arrhythmias. 3. HTN: controlled Okay for discharge from cardiac standpoint. Plan Plan of Care Problems Medical Problems: (1) Chest pain Status: Acute Comment Review of Relevant I have reviewed the following items basim (where applicable) has been applied. Labs Laboratory Tests Test 03/10/17 18:15 03/11/17 00:30 03/11/17 14:00 Troponin I Quantitative < 0.017 ng/mL (0.000-0.055) < 0.017 ng/mL (0.000-0.055) < 0.017 ng/mL (0.000-0.055) Medications Current Medications Acetaminophen (Tylenol) 325 mg PRN Q6HRS PRN PO pain; Start 03/10/17 at 16:45 Atorvastatin Calcium (Lipitor) 10 mg HS PO Last administered on 03/10/17 20:41 ; Start 03/10/17 at 21:00 Enoxaparin Sodium (Lovenox 40mg Syringe) 40 mg Q24H SQ Last administered on 20:43; Start 03/10/17 at 21:00 Enoxaparin Sodium (Lovenox Per Pharmacy Prophylaxis Dosing) 1 each PRN DAILY PRN MC SEE COMMENTS; Start 03/10/17 at 16:45; Stop 03/11/17 at 09:31; Status DC Fenofibrate (Lofibra) 54 mg DAILY PO Last administered on 03/11/17 12:03; Start 03/11/17 at 09:00 Ferrous Sulfate (Feosol) 325 mg DAILY PO Last administered on 03/11/17 12:02; Start 03/11/17 at 09:00 Hydrochlorothiazide (Microzide) 12.5 mg DAILY PO Last administered on 12:02; Start 03/11/17 at 09:00 Lisinopril (Prinivil) 20 mg 1X ONCE PO Last administered on 03/10/17 20:42; Start 03/10/17 at 21:00; Stop 03/10/17 at 21:01; Status DC Lisinopril (Prinivil) 20 mg DAILY PO Last administered on 03/11/17 12:03; Start 03/11/17 at 09:00 Lorazepam (Ativan) 0.5 mg BID PO Last administered on 03/11/17 12:02; Start 03/10/17 at 21:00 Pantoprazole Sodium (Protonix) 40 mg DAILYAC PO Last administered on 03/11/17 12:03; Start 03/10/17 at 19:00 Regadenoson (Lexiscan) 0.4 mg 1X ONCE IV Last administered on 03/11/17 10:00 ; Start 03/11/17 at 10:00; Stop 03/11/17 at 10:01; Status DC Senna/Docusate Sodium (Senna Plus) 1 tab PRN DAILY PRN PO CONSTIPATION; Start 03/10/17 at 16:45 Sertraline HCl (Zoloft) 50 mg DAILY PO ; Start 03/11/17 at 09:00 Vitals/I & O Vital Sign - Last 24 Hours 03/10/17 03/10/17 03/10/17 03/10/17 19:00 19:32 20:42 20:58 Temp 98.2 98.2 Pulse 96 96 Resp 18 B/P (MAP) 143/66 (91) 143/66 Pulse Ox 96 96 O2 Delivery Room Air Room Air Room Air 03/10/17 03/11/17 03/11/17 03/11/17 23:00 03:00 07:00 07:41 Temp 97.8 97.9 98.5 97.8 97.9 98.5 Pulse 94 93 80 Resp 18 20 16 B/P (MAP) 133/75 (94) 143/70 (94) 123/65 (84) Pulse Ox 96 95 92 95 O2 Delivery Room Air Room Air Room Air Room Air 03/11/17 03/11/17 03/11/17 03/11/17 08:00 11:00 12:03 15:09 Temp 98.5 98.4 98.5 98.4 Pulse 99 99 76 Resp 18 18 B/P (MAP) 127/67 (87) 127/67 130/79 (96) Pulse Ox 97 95 O2 Delivery Room Air Intake and Output 03/10/17 03/10/17 03/11/17 15:00 23:00 07:00 Intake Total 0 ml 700 ml Balance 0 ml 700 ml BRITTNY JURADO MD Mar 11, 2017 16:28
== END 2017-03-11 19:45 | disposition home or self-care (01) | DRG 313 ==
LOC: ER 10:38 → 2 NORTH 12:23
PROVIDERS: ADMIT Internal Medicine; ATTEND Internal Medicine
DX: R07.89 Other chest pain (principal); E66.01 Morbid (severe) obesity due to excess calories; Z68.41 Body mass index [BMI] 40.0-44.9, adult; E78.5 Hyperlipidemia, unspecified; F41.9 Anxiety disorder, unspecified; I10 Essential (primary) hypertension; J45.909 Unspecified asthma, uncomplicated; M19.90 Unspecified osteoarthritis, unspecified site; Z96.653 Presence of artificial knee joint, bilateral; K21.9 Gastro-esophageal reflux disease without esophagitis; Z82.49 Family history of ischemic heart disease and other diseases of the circulatory system; Z88.0 Allergy status to penicillin
CPT/HCPCS: 36415; 71010; 78452; 80053; 80061; 83735; 84484; 85025; 85379; 93005; 93017; 93306; 94250; 94640; 94760; 96374; 96375; 96376; A9500; J1650; J2785; J7512; J7620

== ENCOUNTER → 2017-04-05 | Outpatient (CLI) | payer OTHER, BC | END | disposition home or self-care (01) | LOC: PF 10:05 | DX: R06.00 Dyspnea, unspecified (principal) | CPT/HCPCS: 94010; 94729 ==

== ENCOUNTER → 2017-05-12 | Outpatient (CLI) | payer OTHER ==
[2017-05-12] MEDS: IOHEXOL 300 MG/ML 100ML VIAL. IV ×2 (15:38)
== END | disposition home or self-care (01) ==
LOC: KCIC CT 15:13
DX: J38.3 Other diseases of vocal cords (principal); E04.1 Nontoxic single thyroid nodule; M48.8X2 Other specified spondylopathies, cervical region
CPT/HCPCS: 70491; Q9967